=== PATIENT | female | born 1990 | race Caucasian/White ===

== ENCOUNTER 2021-05-21 11:17 | Emergency (ER) | payer SELFPAY ==
--- NOTE | 2021-05-21 11:26 | EDM.PDOC ---
<Ja Raines - Last Filed: 05/22/21 01:07> ED HPI GENERAL MEDICAL PROBLEM - General Stated Complaint: EMS Time Seen by Provider: 05/21/21 11:18 - History of Present Illness INITIAL COMMENTS - FREE TEXT/NARRATIVE: 1:07 AM: I had an opportunity to have a discussion with the patient's regarding her condition. According to the , the patient has been acting bizarre for the last couple days. reports that they found warm wood in their yard and that they have picked it and it was on the counter. reports that he believes that his has been eating it gradually over the last 2 to 3 weeks. He reports that the last time she would have had access to the warm wood would have been early on May 20. He reports that approximately noon time on May 20 she was acting bizarre and the police were dispatched. He reports that she was taking to [facility] and was evaluated there for several hours. He reports that approximately 46 hours after her initial assessment she was discharged to home with him. He reports that she was acting extremely bizarre when she first arrived to the hospital and when she was discharged from the hospital she was still acting bizarre but had improved slightly. He reports that she was in the car with him driving to a motel where they were planning to sleep when she started acting extremely bizarre and having a intermittent episodes of telling him that she loved him and then other episodes where she was punching him and telling him that she did not recognize him and that he was not her . He reports that she was acting extremely bizarre at that time so he called her sister to fly into assisting with her care. He reports that she was acting bizarre around the children again yesterday and so police were once again dispatched and she was brought to the ED here for further evaluation. Although the patient likely has hallucinations from the warm wood that she was ingesting, it is unlikely that her symptoms currently are secondary to the ingestion. I have spoken to [place] poison control regarding the concerns with ingestion of wormwood. They report that hallucinations are possible but that the likely toxin would result in significantly abnormal vital signs in addition to the hallucinations. Patient's vital signs here in the ED have been stable for the last several hours. Per the poison control service, they believe that it would be unlikely that her hallucinations would be a side effect from warm wood intoxication if she was here with normal vital signs. After speaking to the , it also appears that the last access to warm wood would have been approximately 48 hours ago. Per poison control the hallucinatory symptoms of warm wood would subside within 4 to 6 hours. He reports that they have not been home since May 20 at noon time where the warm wood would be and that she did not have any access to it since. - Related Data Allergies Allergy/AdvReac Type Severity Reaction Status Date / Time No Known Allergies Allergy Verified 05/21/21 12:09 Home Meds: Home Meds . [No Known Home Meds] 01/01/18 [History] Departure - Departure Disposition: DC/Tfer to Psych Hosp/Unit [facility] Clinical Impression: Psychosis - Discharge Information Referrals: PCP,None [Primary Care Provider] - <Karlos Wyman - Last Filed: 05/22/21 16:58> ED HPI GENERAL MEDICAL PROBLEM - General Source of Information: Reports: Patient History Limitations: Reports: Altered Mental Status, Intoxication - History of Present Illness INITIAL COMMENTS - FREE TEXT/NARRATIVE: 30-year-old female unknown past medical history presents for psychotic behavior. History is from EMS. Patient did receive Haldol and Benadryl prior to arrival and is not giving any history. Per EMS patient ate wormwood this morning and afterwards started with psychotic behavior. She became aggressive towards her child biting him. She was aggressive with police and EMS, biting, spitting, screaming. Her speech was disorganized talking about burning cars, demonic possession. She does not have a psychiatric history that we are aware of and has not been seen in the emergency department for psychiatric issues in the past. She is currently awake, opens her eyes to command, refusing to answer any questions. Through chart searching, it does appear that patient has PMHx of lupus. Past Medical History Genitourinary History: Reports: Other (See Below) Other Genitourinary History: gitelman's syndrome Musculoskeletal History: Reports: Other (See Below) Other Musculoskeletal History: Stevie-Danlos syndrome and LUpus - Past Surgical History HEENT Surgical History: Reports: Naso-Sinus Surgery ED ROS GENERAL - Review of Systems Review Of Systems: Comprehensive ROS is negative, except as noted in HPI. ED EXAM, GENERAL - Physical Exam Exam: See Below Exam Limited By: No Limitations General Appearance: Alert, WD/WN, No Apparent Distress, Other (poor hygiene, unkempt) Eye Exam: Bilateral Eye: PERRL Ears: Hearing Grossly Normal Nose: Normal Inspection Throat/Mouth: Normal Voice, No Airway Compromise, Other (dry oral mucosa) Head: Atraumatic, Normocephalic Neck: Normal Inspection, Supple, Non-Tender Respiratory/Chest: No Respiratory Distress, Lungs Clear, Normal Breath Sounds, No Accessory Muscle Use Cardiovascular: Normal Peripheral Pulses, Regular Rate, Rhythm GI/Abdominal: Soft, Non-Tender Extremities: Normal Inspection Neurological: Alert Psychiatric: Other (refusing to answer questions) Skin Exam: Warm, Dry, Intact, Normal Color #1 Interpretation EKG Date: 05/21/21 Time: 11:36 Rhythm: NSR Rate (Beats/Min): 91 Ida: Normal P-Wave: Present QRS: Normal ST-T: Normal QT: Normal WV/PQ Interval: 125 EKG Interpretation Comments: no acute ischemic changes, normal axis/intervals Course - Re-Assessments/Exams Free Text/Narrative Re-Assessment/Exam: 05/21/21 11:27 We will get medical clearance labs. EMS did reach out to poison control center who recommends supportive care, benzodiazepines as needed for agitation. 05/21/21 11:52 I spoke with patient's mother Ms. Ludwig [phone] who is in [place]; she notes that her daughter does not have a psychiatric history and this is all very unusual for her. She notes that her daughter is very into natural medicine and has been experimenting with different herbs. She would like to be called with updates 05/21/21 12:16 Patient is much more awake and alert. She is answering some questions. She is displaying delusional, psychotic behavior and thought processes. She states that her mother is not Ms. Ludwig and that her mother is destroyed. She states that she needs more wormwood. 05/21/21 15:35 [facility] does not have beds available, seen [facility] does not have beds available, [facility] will not answer the phone, [facility] will not answer the phone, [facility] will not answer the phone, [facility], [facility] will not answer the phone, 05/21/21 16:26 [place] and [facility] states that they will call me back 05/21/21 16:[address] Raphael of [facility] who does not have beds available. 05/21/21 17:00 [facility] does not have beds available 05/21/21 17:01 [facility] does not have beds available 05/21/21 17:06 [facility] does not answer the phone 05/21/21 17:08 [facility] does not have any beds available 05/22/21 08:18 [facility] has no beds. [facility] in [place] has no beds. [facility] has no beds. [facility] in [place] has no beds. [facility] has no beds but will call back later today. [facility] in [place] has no beds. 05/22/21 09:14 [facility] would be able to take patient but wants her potassium above 3.4 and wants her to be on a psychiatric committal signed by a supplier diversity director. 05/22/21 10:45 I did very long discussion with patient this morning. She is willing to go voluntarily to see a psychiatrist. She seems much better this morning than when I saw her yesterday. I still do suspect an underlying psychiatric illness rather than all this being ingestion of toxic substance. I believe that she would benefit from psychiatric evaluation and still requires transfer, however, we may be able to send her without being on a psychiatric hold considering she is voluntary at this point. She has been calm and cooperative in the emergency department ever since her initial outburst on arrival. 05/22/21 16:58 [facility] called back to inform us that they are currently on diversion and unable to accept the patient regardless for voluntary status. They recommend calling back in the morning as beds may become available after some discharges. <Bradford Monteor - Last Filed: 05/22/21 20:19> Course - Vital Signs Last Recorded V/S: Last Vital Signs Temp 97.9 F 05/22/21 06:31 Pulse 96 05/22/21 19:00 Resp 20 05/22/21 17:00 BP 115/87 05/22/21 19:00 Pulse Ox 97 05/22/21 17:00 - Orders/Labs/Meds Labs: Laboratory Tests 05/21/21 05/21/21 05/21/21 Range/Units 11:34 11:34 11:34 WBC 8.46 (4.0-11.0) K/uL RBC 4.85 (4.30-5.90) M/uL Hgb 13.4 (12.0-16.0) g/dL Hct 39.5 (36.0-46.0) % MCV 81.4 (80.0-98.0) fL MCH 27.6 (27.0-32.0) pg MCHC 33.9 (31.0-37.0) g/dL RDW Std Deviation 42.0 (28.0-62.0) fl RDW Coeff of Arvin 14 (11.0-15.0) % Plt Count 184 (150-400) K/uL MPV 10.30 (7.40-12.00) fL Neut % (Auto) 81.0 H (48.0-80.0) % Lymph % (Auto) 9.9 L (16.0-40.0) % [place] % (Auto) 8.9 (0.0-15.0) % Eos % (Auto) 0.1 (0.0-7.0) % Baso % (Auto) 0.1 (0.0-1.5) % Neut # (Auto) 6.9 H (1.4-5.7) K/uL Lymph # (Auto) 0.8 (0.6-2.4) K/uL [place] # (Auto) 0.8 (0.0-0.8) K/uL Eos # (Auto) 0.0 (0.0-0.7) K/uL Baso # (Auto) 0.0 (0.0-0.1) K/uL Nucleated RBC % 0.0 /100WBC Nucleated RBCs # 0 K/uL Sodium 138 (136-145) mmol/L Potassium 3.1 L (3.5-5.1) mmol/L Chloride 103 (98-107) mmol/L Carbon Dioxide 25.5 (21.0-32.0) mmol/L BUN 19 H (7.0-18.0) mg/dL Creatinine 0.9 (0.6-1.0) mg/dL Est Cr Clr Drug Dosing 66.04 mL/min Estimated GFR (MDRD) > 60.0 ml/min Glucose 107 H (74-106) mg/dL Lactic Acid 1.4 (0.4-2.0) mmol/L Calcium 8.9 (8.5-10.1) mg/dL Magnesium 1.8 (1.8-2.4) mg/dL Total Bilirubin 0.6 (0.2-1.0) mg/dL AST 35 (15-37) IU/L ALT 33 (14-63) IU/L Alkaline Phosphatase 75 (46-116) U/L Creatine Kinase (26-308) U/L Total Protein 6.9 (6.4-8.2) g/dL Albumin 4.1 (3.4-5.0) g/dL Globulin 2.8 (2.6-4.0) g/dL Albumin/Globulin Ratio 1.5 (0.9-1.6) Free T4 1.14 (0.76-1.46) ng/dL Free T3 2.37 (2.18-3.98) pg/mL TSH, Ultra Sensitive 1.71 (0.36-3.74) uIU/mL HCG, Qual (NEG) Urine Color Urine Appearance Urine pH (5.0-8.0) Ur Specific [place] (1.001-1.035) Urine Protein (NEGATIVE) mg/dL Urine Glucose (UA) (NEGATIVE) mg/dL Urine Ketones (NEGATIVE) mg/dL Urine Occult Blood (NEGATIVE) Urine Nitrite (NEGATIVE) Urine Bilirubin (NEGATIVE) Urine Ictotest Urine Urobilinogen (<2.0) EU/dL Ur Leukocyte Esterase (NEGATIVE) Urine RBC (0-2/HPF) Urine WBC (0-5/HPF) Ur Epithelial Cells (NONE-FEW) Urine Bacteria (NEGATIVE) Urine Mucus (NONE-MOD) Salicylates (0-20) mg/dL Urine Opiates Screen (NEGATIVE) Ur Oxycodone Screen (NEGATIVE) Urine Methadone Screen (NEGATIVE) Acetaminophen ug/mL Ur Barbiturates Screen (NEGATIVE) Ur Phencyclidine Scrn (NEGATIVE) Ur Amphetamine Screen (NEGATIVE) U Methamphetamines Scrn (NEGATIVE) U Benzodiazepines Scrn (NEGATIVE) U Cocaine Metab Screen (NEGATIVE) U Marijuana (THC) Screen (NEGATIVE) Ethyl Alcohol < 3.0 mg/dL SARS-CoV-2 RNA (AL) (NEGATIVE) 05/21/21 05/21/21 05/21/21 Range/Units 11:34 11:34 13:40 WBC (4.0-11.0) K/uL RBC (4.30-5.90) M/uL Hgb (12.0-16.0) g/dL Hct (36.0-46.0) % MCV (80.0-98.0) fL MCH (27.0-32.0) pg MCHC (31.0-37.0) g/dL RDW Std Deviation (28.0-62.0) fl RDW Coeff of Arvin (11.0-15.0) % Plt Count (150-400) K/uL MPV (7.40-12.00) fL Neut % (Auto) (48.0-80.0) % Lymph % (Auto) (16.0-40.0) % [place] % (Auto) (0.0-15.0) % Eos % (Auto) (0.0-7.0) % Baso % (Auto) (0.0-1.5) % Neut # (Auto) (1.4-5.7) K/uL Lymph # (Auto) (0.6-2.4) K/uL [place] # (Auto) (0.0-0.8) K/uL Eos # (Auto) (0.0-0.7) K/uL Baso # (Auto) (0.0-0.1) K/uL Nucleated RBC % /100WBC Nucleated RBCs # K/uL Sodium (136-145) mmol/L Potassium (3.5-5.1) mmol/L Chloride (98-107) mmol/L Carbon Dioxide (21.0-32.0) mmol/L BUN (7.0-18.0) mg/dL Creatinine (0.6-1.0) mg/dL Est Cr Clr Drug Dosing mL/min Estimated GFR (MDRD) ml/min Glucose (74-106) mg/dL Lactic Acid (0.4-2.0) mmol/L Calcium (8.5-10.1) mg/dL Magnesium (1.8-2.4) mg/dL Total Bilirubin (0.2-1.0) mg/dL AST (15-37) IU/L ALT (14-63) IU/L Alkaline Phosphatase (46-116) U/L Creatine Kinase 660 H (26-308) U/L Total Protein (6.4-8.2) g/dL Albumin (3.4-5.0) g/dL Globulin (2.6-4.0) g/dL Albumin/Globulin Ratio (0.9-1.6) Free T4 (0.76-1.46) ng/dL Free T3 (2.18-3.98) pg/mL TSH, Ultra Sensitive (0.36-3.74) uIU/mL HCG, Qual NEGATIVE (NEG) Urine Color Urine Appearance Urine pH (5.0-8.0) Ur Specific [place] (1.001-1.035) Urine Protein (NEGATIVE) mg/dL Urine Glucose (UA) (NEGATIVE) mg/dL Urine Ketones (NEGATIVE) mg/dL Urine Occult Blood (NEGATIVE) Urine Nitrite (NEGATIVE) Urine Bilirubin (NEGATIVE) Urine Ictotest Urine Urobilinogen (<2.0) EU/dL Ur Leukocyte Esterase (NEGATIVE) Urine RBC (0-2/HPF) Urine WBC (0-5/HPF) Ur Epithelial Cells (NONE-FEW) Urine Bacteria (NEGATIVE) Urine Mucus (NONE-MOD) Salicylates (0-20) mg/dL Urine Opiates Screen NEGATIVE (NEGATIVE) Ur Oxycodone Screen NEGATIVE (NEGATIVE) Urine Methadone Screen NEGATIVE (NEGATIVE) Acetaminophen ug/mL Ur Barbiturates Screen NEGATIVE (NEGATIVE) Ur Phencyclidine Scrn NEGATIVE (NEGATIVE) Ur Amphetamine Screen NEGATIVE (NEGATIVE) U Methamphetamines Scrn NEGATIVE (NEGATIVE) U Benzodiazepines Scrn NEGATIVE (NEGATIVE) U Cocaine Metab Screen NEGATIVE (NEGATIVE) U Marijuana (THC) Screen NEGATIVE (NEGATIVE) Ethyl Alcohol mg/dL SARS-CoV-2 RNA (AL) (NEGATIVE) 05/21/21 05/21/21 05/21/21 Range/Units 13:40 14:37 18:10 WBC (4.0-11.0) K/uL RBC (4.30-5.90) M/uL Hgb (12.0-16.0) g/dL Hct (36.0-46.0) % MCV (80.0-98.0) fL MCH (27.0-32.0) pg MCHC (31.0-37.0) g/dL RDW Std Deviation (28.0-62.0) fl RDW Coeff of Arvin (11.0-15.0) % Plt Count (150-400) K/uL MPV (7.40-12.00) fL Neut % (Auto) (48.0-80.0) % Lymph % (Auto) (16.0-40.0) % [place] % (Auto) (0.0-15.0) % Eos % (Auto) (0.0-7.0) % Baso % (Auto) (0.0-1.5) % Neut # (Auto) (1.4-5.7) K/uL Lymph # (Auto) (0.6-2.4) K/uL [place] # (Auto) (0.0-0.8) K/uL Eos # (Auto) (0.0-0.7) K/uL Baso # (Auto) (0.0-0.1) K/uL Nucleated RBC % /100WBC Nucleated RBCs # K/uL Sodium (136-145) mmol/L Potassium (3.5-5.1) mmol/L Chloride (98-107) mmol/L Carbon Dioxide (21.0-32.0) mmol/L BUN (7.0-18.0) mg/dL Creatinine (0.6-1.0) mg/dL Est Cr Clr Drug Dosing mL/min Estimated GFR (MDRD) ml/min Glucose (74-106) mg/dL Lactic Acid (0.4-2.0) mmol/L Calcium (8.5-10.1) mg/dL Magnesium (1.8-2.4) mg/dL Total Bilirubin (0.2-1.0) mg/dL AST (15-37) IU/L ALT (14-63) IU/L Alkaline Phosphatase (46-116) U/L Creatine Kinase (26-308) U/L Total Protein (6.4-8.2) g/dL Albumin (3.4-5.0) g/dL Globulin (2.6-4.0) g/dL Albumin/Globulin Ratio (0.9-1.6) Free T4 (0.76-1.46) ng/dL Free T3 (2.18-3.98) pg/mL TSH, Ultra Sensitive (0.36-3.74) uIU/mL HCG, Qual (NEG) Urine Color YELLOW Urine Appearance CLEAR Urine pH 6.0 (5.0-8.0) Ur Specific [place] >= 1.030 (1.001-1.035) Urine Protein NEGATIVE (NEGATIVE) mg/dL Urine Glucose (UA) NEGATIVE (NEGATIVE) mg/dL Urine Ketones 15 H (NEGATIVE) mg/dL Urine Occult Blood TRACE-INTACT H (NEGATIVE) Urine Nitrite NEGATIVE (NEGATIVE) Urine Bilirubin SMALL H (NEGATIVE) Urine Ictotest NEGATIVE Urine Urobilinogen 0.2 (<2.0) EU/dL Ur Leukocyte Esterase NEGATIVE (NEGATIVE) Urine RBC 1-3 (0-2/HPF) Urine WBC 0-2 (0-5/HPF) Ur Epithelial Cells OCCASIONAL (NONE-FEW) Urine Bacteria FEW (NEGATIVE) Urine Mucus LIGHT (NONE-MOD) Salicylates 2.3 (0-20) mg/dL Urine Opiates Screen (NEGATIVE) Ur Oxycodone Screen (NEGATIVE) Urine Methadone Screen (NEGATIVE) Acetaminophen <2.0 ug/mL Ur Barbiturates Screen (NEGATIVE) Ur Phencyclidine Scrn (NEGATIVE) Ur Amphetamine Screen (NEGATIVE) U Methamphetamines Scrn (NEGATIVE) U Benzodiazepines Scrn (NEGATIVE) U Cocaine Metab Screen (NEGATIVE) U Marijuana (THC) Screen (NEGATIVE) Ethyl Alcohol mg/dL SARS-CoV-2 RNA (AL) NEGATIVE (NEGATIVE) Meds: Medications Discontinued Medications Generic Name Dose Route Start Last Admin Trade Name Freq PRN Reason Stop Dose Admin Haloperidol Lactate 5 mg 05/21/21 12:17 05/21/21 12:28 Haloperidol Lactate 5 Mg/Ml Sdv IM 05/21/21 12:18 5 mg ONETIME ONE Administration Haloperidol Lactate 5 mg 05/22/21 15:00 05/22/21 15:07 Haloperidol Lactate 5 Mg/Ml Sdv IM 05/22/21 15:01 5 mg ONETIME ONE Administration Haloperidol Lactate Confirm 05/22/21 15:01 05/22/21 15:08 Haloperidol Lactate 5 Mg/Ml Sdv Administered 05/22/21 15:02 Not Given Dose 5 mg .ROUTE .STK-MED ONE Sodium Chloride 1,000 mls @ 999 mls/hr 05/21/21 11:47 05/21/21 12:08 Normal Saline IV 05/21/21 12:47 999 mls/hr .Bolus ONE Administration Sodium Chloride 1,000 mls @ 999 mls/hr 05/21/21 13:28 05/21/21 13:39 Normal Saline IV 05/21/21 14:28 999 mls/hr .Bolus ONE Administration Potassium Chloride 40 meq/ 100 mls @ 25 mls/hr 05/22/21 09:13 05/22/21 11:33 Premix IV 05/22/21 13:12 25 mls/hr ONETIME ONE Administration Lorazepam 2 mg 05/21/21 12:16 05/21/21 12:32 Lorazepam 2 Mg/Ml Sdv IVPUSH 05/21/21 12:17 2 mg ONETIME ONE Administration Lorazepam 2 mg 05/22/21 15:00 05/22/21 15:07 Lorazepam 2 Mg/Ml Sdv IM 05/22/21 15:01 2 mg ONETIME ONE Administration Lorazepam Confirm 05/22/21 15:01 05/22/21 15:08 Lorazepam 2 Mg/Ml Sdv Administered 05/22/21 15:02 Not Given Dose 2 mg .ROUTE .STK-MED ONE Potassium Chloride 40 meq 05/22/21 09:13 Potassium Chloride 10% 20 Meq/15 Ml Soln 30 Ml Ud Cup PO 05/22/21 09:14 ONETIME ONE Potassium Chloride 40 meq 05/22/21 13:17 05/22/21 13:46 Potassium Chloride 20 Meq Tab.Er PO 05/22/21 13:18 40 meq ONETIME ONE Administration - Re-Assessments/Exams Free Text/Narrative Re-Assessment/Exam: 05/22/21 20:18 Patient was signed out to me from previous provider. Patient was waiting to be transferred. We received a call from [facility] patient's been accepted by Dr. Paez. We will call EMS and have patient transferred. Departure - Departure Time of Disposition: 20:19 Condition: Good - Discharge Information *PRESCRIPTION DRUG MONITORING PROGRAM REVIEWED*: Not Applicable *COPY OF PRESCRIPTION DRUG MONITORING REPORT IN PATIENT RONALD: Not Applicable Sepsis Event Note (ED) - Focused Exam Vital Signs: Vital Signs Pulse Resp BP Pulse Ox 05/22/21 19:00 96 115/87 05/22/21 18:00 70 90/59 L 05/22/21 17:00 76 20 94/65 97 05/22/21 16:00 80 20 115/74 97 05/22/21 15:00 88 20 113/75 98 05/22/21 14:00 63 20 125/85 97 05/22/21 13:00 74 20 123/87 98 05/22/21 12:00 88 20 140/81 96 05/22/21 11:02 86 20 123/90 97 05/22/21 10:00 78 20 126/92 H 97 05/22/21 09:00 115 H 22 H 138/93 H 99
[2021-05-21] MEDS ORDERED: Sodium Chloride 0.9% 1,000 ML IV ONE ×2 (11:47→13:28)
[2021-05-21] MEDS ORDERED: LORazepam 2 MG/ML SDV IVPUSH ONE (12:16)
[2021-05-21] MEDS ORDERED: Haloperidol Lactate 5 MG/ML SDV IM ONE (12:17)
[2021-05-21 12:24] LABS: BLOOD UREA NITROGEN,BUN 19 mg/dL (7.0-18.0); CARBON DIOXIDE,CO2 25.5 mmol/L (21.0-32.0); CHLORIDE,CL 103 mmol/L (98-107); GLUCOSE RANDOM 107 mg/dL (74-106); POTASSIUM,K 3.1 mmol/L (3.5-5.1); SODIUM,NA 138 mmol/L (136-145)
--- NOTE | 2021-05-21 14:14 | CT ---
INDICATION: Psychosis. TECHNIQUE: CT head without contrast. COMPARISON: None. FINDINGS: CSF spaces: Within normal limits for age. Brain parenchyma and extra-axial spaces: The stafford-white differentiation is normal. No sign of mass, hemorrhage, or midline shift. No extra-axial fluid collection. Skull base and calvarium: The visualized paranasal sinuses and mastoid air cells demonstrate no acute or significant findings. The visualized orbits are grossly unremarkable. No skull fractures. IMPRESSION: Unremarkable noncontrast head CT. Please note that all CT scans at this facility use dose modulation, iterative reconstruction, and/or weight-based dosing when appropriate to reduce radiation dose to as low as reasonably achievable. Dictated by Kevin Funes MD @ 05/21/2021 2:13:17 PM (Electronically Signed)
[2021-05-21 18:37] LABS: ACETAMINOPHEN <2.0 ug/mL
[2021-05-22] MEDS ORDERED: Potassium Chloride 10% 20 MEQ/15 ML Soln 30 ML UD Cup PO ONE (09:13)
[2021-05-22] MEDS ORDERED: Potassium Chloride Riders 40 MEQ in Premix Bag 1 BAG IV ONE (09:13)
[2021-05-22] MEDS ORDERED: Potassium Chloride 20 MEQ Tab.ER PO ONE (13:17)
[2021-05-22] MEDS ORDERED: Haloperidol Lactate 5 MG/ML SDV IM ONE (15:00)
[2021-05-22] MEDS ORDERED: LORazepam 2 MG/ML SDV IM ONE (15:00)
[2021-05-22] MEDS ORDERED: Haloperidol Lactate 5 MG/ML SDV ONE (15:01)
[2021-05-22] MEDS ORDERED: LORazepam 2 MG/ML SDV ONE (15:01)
== END 2021-05-22 21:46 ==
LOC: MW.ED 11:17
DX: F29 Unspecified psychosis not due to a substance or known physiological condition (principal); Z20.822 Contact with and (suspected) exposure to COVID-19
CPT/HCPCS: 36415; 70450; 80053; 80143; 80179; 80305; 80307; 81001; 82550; 83605; 83735; 84439; 84443; 84481; 84703; 85025; 87635; 93005; 96365; 96372; 96375; 99285; A9270; J1630; J2060; J3480; J7030; U0002